=== PATIENT | male | born 1970 | race Caucasian/White ===

== ENCOUNTER 2024-06-19 05:52 | Day surgery (SDC) | payer BC, SELFPAY ==
[2024-06-19 06:12] VITALS: BP 104/58; PULSE 64; RESP 18; TEMP 36.3; O2SAT 98; BMI 24.3
[2024-06-19] MEDS: sodium chloride 0.9% 500 ML 15 ML IV (06:22)
--- NOTE | 2024-06-19 06:58 | ANES.PREANE2 ---
Pre-Anesthetic Assessment Height/Weight: Height 1.78 m Weight 77.111 kg Temp Pulse Resp BP Pulse Ox O2 Del Method 97.4 F L 64 18 104/58 98 Room Air 06/19/24 06:12 06/19/24 06:12 06/19/24 06:12 06/19/24 06:12 06/19/24 06:12 06/19/24 06:12 Preop Diagnosis: screening Operation Date: 06/19/24 07:00 Proposed Procedures p Colonoscopy(Not Applicable) - Reji Garcia MD Familial anesthetic complications: noine Was Beta Charlotte taken within 24 hours: N/A Was Clonidine taken within 24 hours: N/A Last intake: Intake Last Liquid Date 06/18/24 Last Liquid Time 20:00 Last Solid Date 06/17/24 Last Solid Time 20:00 Social No alcohol and No tobacco Exam alert and oriented x 3 Airway Submandibular: within normal limits Cervical ROM: within normal limits Mallampati: Class II Dentition: full History/ROS No significant complaints Anesthetic Plan ASA status: 1 Anesthesia: Anesthesia Evaluation and MAC Risk of > 500 ml blood loss (7ml/kg in children): No Medications/Allergies Home Medications ?Medication ?Instructions ?Recorded ?Confirmed ?Last Taken ?Type No Known Home Medications 05/29/23 06/17/24 Unknown History Allergies Allergy/AdvReac Type Severity Reaction Status Date / Time No Known Allergies Allergy Verified 06/16/24 08:36 Current Medications Generic Name Dose Route Start Last Admin Trade Name Freq PRN Reason Stop Dose Admin Sodium Chloride 500 mls @ 15 mls/hr 06/19/24 06:01 06/19/24 06:22 Sodium Chloride 0.9% IV 06/20/24 06:00 15 mls/hr .Q24H PRN Administration COLONOSCOPY FLUIDS PFSH Anesthesia Medical History No pertinent family history Hyperlipemia Surgical History (Updated 05/28/24 @ 11:49 by MARTÍNEZ Khan) No pertinent past surgical history Family History Father Alzheimer's dementia Social History Smoking and tobacco/nicotine status: never used tobacco/nicotine Alcohol intake: current Alcohol intake frequency: few times a month Substance/Drug Use: never Data Anesthesia Cardiac Studies: No Data to Display
--- NOTE | 2024-06-19 07:02 | W.PM.OPSUD ---
Surgery/Procedure H&P Update DATE OF PROCEDURE: June 19, 2024 DATE H&P PERFORMED: 05/28/24 H&P UPDATE INFORMATION: I have reviewed H&P completed within last 30 days, I have examined patient prior to procedure, No changes to prior documentation and H&P is in [facility] [place] EMR on date indicated PREOP DIAGNOSIS: screening PLANNED PROCEDURE: Operation Date: 06/19/24 07:00 Proposed Procedures p Colonoscopy(Not Applicable) - Reji Garcia MD
[2024-06-19 07:27] VITALS: BP 100/63; PULSE 60; RESP 18; TEMP 36.1; O2SAT 100
--- NOTE | 2024-06-19 07:40 | ANE.PACU2 ---
Inpatient post-anesthesia follow up: Airway intact: Yes Vital signs: Temperature 97 F Pulse Rate 60 Respiratory Rate 18 Blood Pressure 100/63 Pulse Oximetry 100 Oxygen Delivery Me thod Room Air Oxygen Flow Rate Fraction of Inspir ed Oxygen Hydration adequate: Yes Nausea and vomiting: No Pain level: 1 Mental status: Baseline
[2024-06-19 07:51] VITALS: BP 107/67; PULSE 57; RESP 18; O2SAT 98
== END 2024-06-19 08:12 | disposition home or self-care (01) ==
PROVIDERS: PCP Nurse Practitioner Family; Visit Provider Surgery
PROC: 0DJD8ZZ Inspection of Lower Intestinal Tract, Via Natural or Artificial Opening Endoscopic (ICD-10-PCS; CPT 45378; principal; 2024-06-19 07:00)
DX: Z12.11 Encounter for screening for malignant neoplasm of colon (principal); Z86.0100 Personal history of colon polyps, unspecified
CPT/HCPCS: 45378; J2704; J7040